=== PATIENT | male | born 1985 | race African-American/Black ===

== ENCOUNTER 2019-06-19 18:43 | Emergency (ER) | payer SELFPAY ==
[2019-06-19 18:54] VITALS: BMI 23.0
[2019-06-19] MEDS ORDERED: ONDANSETRON 4 MG/2 ML VIAL IVPUSH ONE (19:16)
[2019-06-19] MEDS ORDERED: SODIUM CHLORIDE 1,000 ML IV STA (19:16)
[2019-06-19] MEDS ORDERED: FAMOTIDINE 20 MG/50 ML IVPB 20 MG/50 ML MG IVPB ONE ×2 (19:16→19:27)
[2019-06-19] MEDS ORDERED: ALBUTEROL SO4 2.5/IPRATROPIUM 0.5 INH SOL 3 ML VIAL.NEB. NEB ONE (19:27)
[2019-06-19] MEDS ORDERED: ONDANSETRON 4 MG/2 ML VIAL ONE (19:27)
[2019-06-19] MEDS: ALBUTEROL SO4 2.5/IPRATROPIUM 0.5 INH SOL 3 ML VIAL.NEB. NEB SCH ×3 (19:36→20:07)
[2019-06-19 19:40] LABS: BASO % 0.7 % (0-2.0); HEMATOCRIT 40.8 % (35.4-49); HEMOGLOBIN 13.2 GM/dL (11.7-16.9); MCH 29.3 pg (25.7-33.7); MCHC 32.4 g/dl (32.0-35.9); MEAN CELL VOLUME 90.6 fl (80-96); MEAN PLT VOLUME 7.9 fl (7.5-11.1); MONO % 4.5 % (3.8-10.2); NEUT % 73.8 % (42.8-82.8); PLATELET COUNT 200 K/MM3 (134-434); WHITE BLOOD COUNT 11.1 K/mm3 (4.0-10.0)
[2019-06-19 20:54] VITALS: BP 115/69; PULSE 65; TEMP 97.6
--- NOTE | 2019-06-19 20:54 | PDOC ---
Documentation entered by Sharee Chance SCRIBE, acting as scribe for Summer Novoa MD. Summer Novoa MD: This documentation has been prepared by the Robson ruiz Adrianna, SCRIBE, under my direction and personally reviewed by me in its entirety. I confirm that the documentation accurately reflects all work, treatment, procedures, and medical decision making performed by me. History of Present Illness - General Chief Complaint: Vomiting/Diarrhea Stated Complaint: INTOXICATION Time Seen by Provider: 06/19/19 19:09 History Source: Patient Exam Limitations: No Limitations - History of Present Illness Initial Comments: 33 y.o male, PMH of asthma, presenting with chest pain, nausea, vomit, and abdominal pain for 3 hours. Patient notes he smoked a K2 bag earlier this afternoon around 4pm, and notes immediate onset nausea. He states that this is a new habit for him, and is unsure if the marijuana was laced. His chief complaint is chest pain, noting his lungs hurt and his pain is exacerbated with inhaling. Patient endorses multiple episodes of bile vomit, with diffuse abdominal pain and diarrhea. He denies any blood in his vomit or stool. Patient reports feeling sweaty but cold, endorsing chills while in the ED. Denies fever, SOB, palpitation, dizziness, weakness, bladder and bowel problems , leg swelling, numbness or tingling, cough, runny nose, rash. No sick contacts or travel. No new changes in medications. No suspicious food intake Allergies: None Past Medical History/PSH: Asthma Social history: K2 use 3 hours ago. Daily tobacco use. Lives with family. No ETOH or illicit drug use. Meds: as documented in EMR Family history: noncontributory Review of systems Constitutional: +Diaphoretic. no fevers. No weakness HEENT: no headache or dizziness. No congestion. CVS: +Chest pain. No syncope. Resp: +SOB. No cough. Gastrointestinal: +Diffuse abdominal pain. +Nausea. +Vomit. +Diarrhea. Genitourinary: no urinary sx, hematuria. MUSCULOSKELETAL: No joint pain and swelling. No neck or back pain. SKIN: no redness or skin changes, no discharge, no rash. No wounds. Hematologic: no easy bruising/bleeding. NEUROLOGIC: No headache, dizziness, LOC or altered mental status. No weakness, numbness or tingling. Psych: no anxiety or depression Allergic/Immunologic: no allergies All other systems reviewed and negative, or as documented in HPI. Physical exam General: awake and alert, in mild distress HEENT: NCAT, PERRL, EOMI, clear conjunctiva, anicteric, moist mucus membranes, clear oropharynx, no oral lesions.. Neck: neck supple, FROM Resp: +Scant expiratory wheezing bilaterally. no respiratory distress CVS: RRR, no murmurs, 2+ peripheral pulses throughout, no peripheral edema Abdomen: soft, NTND, no rebound or guarding. No CVAT. Back: nontender, normal inspection and ROM MSK: no edema, JULIEN x4, ROM intact. No clubbing or cyanosis. normal bulk and tone. Extremities: no calf tenderness Neuro: alert, oriented appropriately; no focal neurologic deficits Psych: Calm and cooperative Skin: warm and well perfused, cap refill <2 sec, normal color 06/19/19 20:47 06/19/19 20:48 Past History - Past Medical History Allergies/Adverse Reactions: Allergies Allergy/AdvReac Type Severity Reaction Status Date / Time No Known Allergies Allergy Verified 06/19/19 18:49 Home Medications: Ambulatory Orders Ondansetron [Zofran -] 4 mg PO TID PRN #6 tablet 06/19/19 Asthma: Yes COPD: No - Psycho Social/Smoking Cessation Hx Smoking History: Never smoked Have you smoked in the past 12 months: No Information on smoking cessation initiated: No Hx Alcohol Use: No Drug/Substance Use Hx: No *Physical Exam - Vital Signs Last Vital Signs Temp Pulse Resp BP Pulse Ox 56 L 20 139/65 100 06/19/19 18:50 06/19/19 18:50 06/19/19 18:50 06/19/19 18:50 Heart Score/ECG Review #1 ECG reviewed & interpreted by me at: 20:25 General ECG Interpretation: Sinus Rhythm, Normal Intervals Compared to previous ECG there are: Previous ECG unavail 06/19/19 20:55 EKG sinus bradycardia at 51 bpm, no interval abnormalities, narrow QRS, ST and T wave segments and morphology normal. benign early replorization appearance,no reciprocal ST depresions, upsloping ST segments. ED Treatment Course - LABORATORY CBC & Chemistry Diagram: 06/19/19 19:27 06/19/19 20:35 - ADDITIONAL ORDERS Additional order review: Laboratory Results 06/19/19 06/19/19 19:27 19:27 Sodium Cancelled Potassium Cancelled Chloride Cancelled Carbon Dioxide Cancelled Anion Gap Cancelled BUN Cancelled Creatinine Cancelled Est GFR (CKD-EPI)AfAm Cancelled Est GFR (CKD-EPI)NonAf Cancelled Random Glucose Cancelled Calcium Cancelled Total Bilirubin Cancelled AST Cancelled ALT Cancelled Alkaline Phosphatase Cancelled Troponin I Cancelled Total Protein Cancelled Albumin Cancelled Lipase Cancelled 06/19/19 19:27 RBC 4.50 MCV 90.6 MCHC 32.4 RDW 15.0 MPV 7.9 Neutrophils % 73.8 Lymphocytes % 20.0 Monocytes % 4.5 Eosinophils % 1.0 Basophils % 0.7 - RADIOLOGY Radiology Studies Ordered: Category Date Time Status CHEST X-RAY PORTABLE* [RAD] Stat Radiology 06/19/19 19:17 Taken - Medications Given in the ED: ED Medications Discontinued Medications Generic Name Dose Route Start Last Admin Trade Name Freq PRN Reason Stop Dose Admin Albuterol/Ipratropium 1 amp 06/19/19 19:30 06/19/19 20:07 Duoneb - NEB 06/19/19 20:01 1 amp Q15M SUSI Administration Famotidine/Sodium Chloride 20 mg in 50 mls @ 100 mls/hr 06/19/19 19:16 19:36 Pepcid 20 Mg Premixed Ivpb - IVPB 06/19/19 19:45 100 mls/hr ONCE ONE Administration Sodium Chloride 1,000 mls @ 1,000 mls/hr 06/19/19 19:16 06/19/19 19:36 Normal Saline - IV 06/19/19 20:15 1,000 mls/hr ASDIR STA Administration Ondansetron HCl 4 mg 06/19/19 19:16 06/19/19 19:36 Zofran Injection IVPUSH 06/19/19 19:17 4 mg ONCE ONE Administration Medical Decision Making - Medical Decision Making 06/19/19 20:50 See HPI for details. Prior notes reviewed, including admissions, discharges and consultations. Vital signs reviewed, wnl. Vital Signs Temp Pulse Resp BP Pulse Ox 56 L 20 139/65 100 06/19/19 18:50 06/19/19 18:50 06/19/19 18:50 06/19/19 18:50 ddx K2 intox, medication side effect, withdrawal laboratory results and imaging reviewed, basic labs and lytes wnl, notable for_ . LFTs/lipase_ CXR_no acute chest pathology Cardiac panel_ EKG sinus bradycardia at 51 bpm, no interval abnormalities, narrow QRS, ST and T wave segments and morphology normal. benign early replorization appearance,no reciprocal ST depresions, upsloping ST segments. ED course -interventions: IVF, zofran, pepcid, maalox, duonebs for wheezing likely side effects from smoking K2 no e/o intox or withdrawal syndrome. denies coingestants. 06/19/19 22:24 tolerated PO challenge. no vomiting here. no cp or sob. no Abdominal pain, benign exam instructed to stop smoking drugs/K2, as likely trigger for sx. Dc in medicaid cab Pt to be discharged in stable condition. Patient made aware of clinical impression, treatment recommendations and disposition plan, return precautions discussed (including but not limited to new or persistent/worsening symptoms, pain, fevers, or signs of infection, chest pain, respiratory distress, inability to tolerate oral intake, dehydration, syncope, or neurologic changes) . Follow up with PMD and/or specialist as recommended, follow up information provided, take medications as instructed for duration of time. continue with supportive care, avoid triggers and precipitants. All questions answered to patient's satisfaction and expressed understanding and comfort with this. At the time of discharge, the patient is alert, clinically improved, tolerating po and verbalizes understanding of instructions, satisfied with the care received and felt comfortable with the plan. Patient does not suffer from an acute life- threatening medical condition at this time and is safe for outpatient follow- up. 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 Please call tomorrow for for any urgent issues. be sure to stop smoking K2 or other recreational drugs given the side effects you have experienced today 2) You were given a copy of the tests performed today. Please bring the results with you and review them with your primary care doctor. Your laboratory / imaging results were normal, 3) If you have any worsening of symptoms or any other concerns please return to the ED immediately. Return if worsening symptoms including fevers, headache, vomiting, visual or hearing disturbances, abdominal pain, chest pain, shortness of breath, syncope, dehydration, inability to take things by mouth/vomiting, altered mental status, or worsening concerning symptoms. 4) Please continue taking your home medications as directed. your medications on discharge include zofran every three times a day as needed for nausea. side effects may include upset stomach, abdominal pain, vomiting, or diarrhea. do not drink alcohol with your medications. Stay well hydrated and rest adequately. Make an appointment. If you cannot follow-up with your primary care doctor please return to the ED 06/19/19 20:51 - Post Discharge Activity
[2019-06-19 21:14] LABS: ALBUMIN 3.8 g/dl (3.4-5.0); ALK PHOS 83 U/L (45-117); ANION GAP 7 MMOL/L (8-16); BILIRUBIN,TOTAL 0.2 mg/dL (0.2-1); BLOOD UREA NITROGEN 17.8 mg/dL (7-18); CALCIUM 8.1 mg/dL (8.5-10.1); CHLORIDE 109 mmol/L (98-107); CO2 27 mmol/L (21-32); GLUCOSE,RANDOM 134 mg/dL (74-106); POTASSIUM 3.6 mmol/L (3.5-5.1); SGOT/AST 20 U/L (15-37); SGPT/ALT 31 U/L (13-61); SODIUM 143 mmol/L (136-145); TOT PROT 6.2 g/dl (6.4-8.2)
[2019-06-19] MEDS ORDERED: MAG HYDROX/AL HYDROX/SIMETH 30 ML UNIT-DOSE CUP PO ONE (22:17)
[2019-06-19] MEDS ORDERED: MAG HYDROX/AL HYDROX/SIMETH 30 ML UNIT-DOSE CUP ONE (22:20)
[2019-06-19] MEDS ORDERED: ONDANSETRON *ODT* 4 MG TABLET SL ONE (22:29)
[2019-06-19] MEDS ORDERED: ONDANSETRON *ODT* 4 MG TABLET ONE (22:30)
--- NOTE | 2019-06-20 09:53 | EKG ---
Test Reason : Blood Pressure : / mmHG Vent. Rate : 051 BPM Atrial Rate : 051 BPM P-R Int : 144 ms QRS Dur : 104 ms QT Int : 436 ms P-R-T Axes : 071 077 049 degrees QTc Int : 401 ms SINUS BRADYCARDIA WITH MARKED SINUS ARRHYTHMIA ST ELEVATION, CONSIDER EARLY REPOLARIZATION, PERICARDITIS, OR INJURY ABNORMAL ECG NO PREVIOUS ECGS AVAILABLE Confirmed by VELMA ARANGO MD ([id number]) on 06/20/2019 9:53:01 AM Referred By: Confirmed By:VELMA ARANGO MD
== END 2019-06-19 22:33 | disposition home or self-care (01) ==
LOC: JER 18:43
PROC: 3E0F7GC Introduction of Other Therapeutic Substance into Respiratory Tract, Via Natural or Artificial Opening (ICD-10-PCS; principal; 2019-06-19)
PROC: 3E033GC Introduction of Other Therapeutic Substance into Peripheral Vein, Percutaneous Approach (ICD-10-PCS; 2019-06-19)
PROC: 3E033GC Introduction of Other Therapeutic Substance into Peripheral Vein, Percutaneous Approach (ICD-10-PCS; 2019-06-19)
DX: F19.20 Other psychoactive substance dependence, uncomplicated (principal); J45.909 Unspecified asthma, uncomplicated; F17.210 Nicotine dependence, cigarettes, uncomplicated
CPT/HCPCS: 36415; 71045-TC-FY; 80053; 82550; 82553; 83690; 84484; 85025; 93005; 93010; 99283-25; J7030; Q0162